=== PATIENT | female | born 1950 | race Caucasian/White ===

== ENCOUNTER 2021-11-23 16:40 | Inpatient (IN) | payer MEDICARE ==
[~2021-11-23] VITALS: Ht 162.6 cm; Wt 82.2 kg
[2021-11-23] MEDS ORDERED: magnesium hydroxide 30ml (MOM) UD suspension PO PRN (22:50)
[2021-11-23] MEDS ORDERED: mag hydrox/Alum hydrox/simeth 30ml oral suspension PO PRN (22:50)
[2021-11-23] MEDS ORDERED: acetaminophen 325mg tablet PO PRN (22:50)
[2021-11-23] MEDS ORDERED: NICOTINE POLACRILEX 2 MG LOZENGE BC PRN (22:50)
[2021-11-23] MEDS ORDERED: Melatonin 3mg tablet PO ONE ×2 (23:30→23:55)
[2021-11-23] MEDS ORDERED: traZODone 150mg tablet PO ONE (23:30)
[2021-11-24] MEDS: acetaminophen 325mg tablet PO PRN ×3 (00:04→19:39)
[2021-11-24 02:17] VITALS: BP 155/69
[2021-11-24] MEDS ORDERED: ATOM40CA PO (02:27)
[2021-11-24] MEDS ORDERED: ANAS1TAB10 PO (02:27)
[2021-11-24] MEDS ORDERED: B CO1CAP5 PO (02:28)
[2021-11-24] MEDS ORDERED: BIOT10TA PO (02:29)
[2021-11-24] MEDS ORDERED: CYCL5TAB PO (02:30)
[2021-11-24] MEDS ORDERED: GABA-530 PO (02:32)
[2021-11-24] MEDS ORDERED: HYDR12.55 PO (02:33)
[2021-11-24] MEDS ORDERED: HYDR-3965 PO (02:35)
[2021-11-24] MEDS ORDERED: EMPA10TA PO (02:36)
[2021-11-24] MEDS ORDERED: METF-436 PO (02:37)
[2021-11-24] MEDS ORDERED: OMEG1CAP61 PO (02:38)
[2021-11-24] MEDS ORDERED: PRAV20TA4 PO (02:39)
[2021-11-24] MEDS ORDERED: PROM25TA14 PO (02:45)
[2021-11-24] MEDS ORDERED: TRAZ-251 PO (02:46)
[2021-11-24] MEDS ORDERED: VENL-191 PO (02:47)
[2021-11-24] MEDS ORDERED: ASCO100T12 PO (02:48)
[2021-11-24] MEDS ORDERED: ALPR1TAB2 PO (02:51)
[2021-11-24] MEDS ORDERED: proMETHazine 25mg tablet PO PRN (03:20)
--- NOTE | 2021-11-24 04:43 | NUR ---
LAVATORY ATTENDANT NOTE: LEGAL HOLD: 5150 for DTS PSYCH HX: Complicated grief ( of 42 years 13 years ago, depression/anxiety, Childhood trauma, second suicide attempt (first at age 15 yo). MEDICAL HX: DM II, Psoriatic arthritis, HTN, hyperlipidemia, chronic back and knee pain, Breast CA (right side), lumpectomy w/ lymph node removal. PROBLEM: Client admitted to [facility] for Xanax overdose. Client took Xanax and was found down. Client stated, "I'm just tired. I don't want to get out of bed. I just want this to end." INTERVENTION: I. Admission assessments. I. Inventory personal belongings. I. Q 15 min checks for safety. I. 1:1 intervention to allow client to express thoughts and feelings. RESPONSE: Client arrived on unit at 22:10 accompanied by Vidya Norris. Client presents as depressed and anxious. Client stated, "I need to sell my house but I don't have the energy to get out of bed. I want to move to [place] to be with my niece and sister." Client is concerned about being admitted and unable to pay her bills. Client stated, "I lost my 13 years ago and can't get over it. We were for 42 years." In addition she was diagnosed with breast ca six months ago. Client is overwhelmed by her current circumstances. She denies that this was a true suicide attempt. Depressed and anxious.
--- NOTE | 2021-11-24 04:59 | NUR ---
NEED DOSAGE AND FREQUENCY FOR TRULICITY AND ENBREL.
[2021-11-24] MEDS: metFORMIN 500mg tablet PO SCH ×2 (07:30→17:59)
[2021-11-24 08:00] VITALS: BP 128/61
[2021-11-24] MEDS: venlafaxine 37.5mg tablet PO SCH (08:00)
[2021-11-24] MEDS: anastrozole 1 MG tablet PO SCH (08:00)
[2021-11-24] MEDS: OMEGA-3/DHA/EPA/FISH OIL 1 EACH CAPSULE.DR PO SCH (08:00)
[2021-11-24] MEDS: ascorbic acid 500mg tablet PO SCH (08:00)
[2021-11-24] MEDS: vitamin B comp w/Vit. C tab 1 TAB TABLET PO SCH (08:00)
[2021-11-24] MEDS: EMPAGLIFLOZIN 25 MG TABLET PO SCH (08:00)
[2021-11-24] MEDS: atomoxetine 40 MG capsule PO SCH (08:00)
[2021-11-24] MEDS: atorvastatin 10mg tablet PO SCH (08:00)
[2021-11-24] MEDS: HYDROchlorothiazide 12.5mg capsule PO SCH (08:00)
[2021-11-24] MEDS ORDERED: nicotine 21mg patch - 24 hr TD SCH (08:00)
[2021-11-24] MEDS ORDERED: non-formulary drug (Biotin 2 TAB) PO SCH (08:00)
[2021-11-24] MEDS: gabapentin 100mg capsule PO SCH ×3 (08:00→20:33)
[2021-11-24 08:06] LABS: HEMOGLOBIN A1C 8.1 % (4.5-6.2)
[2021-11-24] MEDS: loperamide 2mg capsule PO PRN (08:07)
[2021-11-24 08:28] LABS: CHOL/HDL RATIO 4.3 (0.00-4.99); CHOLESTEROL 195 MG/DL (0-200); HDL CHOLESTEROL 45 MG/DL (35-60); LDL CHOLESTEROL 121 MG/DL (50-100); TRIGLYCERIDES 183 MG/DL (20-135)
[2021-11-24] MEDS: HYDROcodone/acetaminophen 5mg/325mg tablet PO PRN (12:53)
--- NOTE | 2021-11-24 17:38 | NUR ---
Nursing Progress Notes: Problem: Client admitted to [facility] for Xanax overdose. Client took Xanax and was found down. Client stated, "I'm just tired. I don't want to get out of bed. I just want this to end." Intervention: Medication administration. Maintained a safe and supportive environment, provided clear and simple instructions, provided direction and encouragement regarding performance of ADLs, monitored behaviors and maintained clear boundaries, provided positive reinforcement, blood glucose checks, and maintained Q15 minute safety checks. Response: Patient was awake at COS. She had a rough night due to her roommate being loud and disruptive. Patient was afraid that it might be because of her presence. That was quickly dispelled by myself. During 1:1 patient states that she did not try to commit suicide, I just wanted to sleep. I had cut my Xanax in pieces, and just kept taking them because I was still awake, buy I took too many, and then it was too late. She also had a pretty significant fall during that time. Patients Niece reports that patient told her she wanted to . The patient is type II diabetic, but hadnt been taking Glucophage. It has been restarted now. AM blood glucose was 217, noon was 220, before dinner was 220 again. She is compliant with all medications, and denies all MH symptoms. Her of 42 years 13 years ago, and the patient still has not dealt with his in any meaningful way. Plan: Pt. requires interruption of current crisis, medication adjustments, and a safe and supportive environment
[2021-11-24 20:00] VITALS: BP 122/65
[2021-11-24] MEDS: traZODone 50mg tablet PO SCH (20:33)
[2021-11-24] MEDS: cyclobenzaprine 10mg tablet PO SCH (20:35)
[2021-11-24] MEDS: ALPRAZolam 0.5mg tablet PO SCH (20:35)
[2021-11-24] MEDS ORDERED: MELA10TA PO (20:50)
[2021-11-24] MEDS: Melatonin 3mg tablet PO SCH (21:08)
--- NOTE | 2021-11-25 00:41 | NUR ---
Nursing Progress Notes: Problem: Client admitted to [facility] for Xanax overdose. Client took Xanax and was found down. Client stated, "I'm just tired. I don't want to get out of bed. I just want this to end." Intervention: Medication administration. Maintained a safe and supportive environment, provided clear and simple instructions, provided direction and encouragement regarding performance of ADLs, monitored behaviors and maintained clear boundaries, provided positive reinforcement, blood glucose checks, and maintained Q15 minute safety checks. Response: Patient in community room putting together a puzzle with a fellow peer. Patient 1:1, Pt denies A/V/H SI HI. Patient downplays incident involving taking medications. Patient persists that she was tired and had kept taking her medications because she was tired and had trouble falling asleep. Patient socialized with other pts until bedtime. Patient blood sugar 221 @2100. Patient took all evening meds w/o complications. Pt went to bed shortly after emergency medical dispatcher. Plan: Pt. requires interruption of current crisis, medication adjustments, and a safe and supportive environment
--- NOTE | 2021-11-25 07:17 | NUR ---
Diabetes consult: Pt w/ hx of DM A1c 8.1 per EMR. Not appropriate for education at this time given reason for admission. Will defer. Addendum: 11/25/21 at [address] Amended: Links added.
[2021-11-25] MEDS: atomoxetine 40 MG capsule PO SCH (07:54)
[2021-11-25] MEDS: vitamin B comp w/Vit. C tab 1 TAB TABLET PO SCH (07:54)
[2021-11-25] MEDS: metFORMIN 500mg tablet PO SCH ×2 (07:54→17:50)
[2021-11-25] MEDS: gabapentin 100mg capsule PO SCH ×3 (07:54→20:31)
[2021-11-25] MEDS: HYDROchlorothiazide 12.5mg capsule PO SCH (07:54)
[2021-11-25] MEDS: ascorbic acid 500mg tablet PO SCH (07:54)
[2021-11-25] MEDS: venlafaxine 37.5mg tablet PO SCH (07:54)
[2021-11-25] MEDS: EMPAGLIFLOZIN 25 MG TABLET PO SCH (07:54)
[2021-11-25] MEDS: OMEGA-3/DHA/EPA/FISH OIL 1 EACH CAPSULE.DR PO SCH (07:54)
[2021-11-25] MEDS: anastrozole 1 MG tablet PO SCH (07:55)
[2021-11-25] MEDS: atorvastatin 10mg tablet PO SCH (07:55)
[2021-11-25 08:00] VITALS: BP 125/74
[2021-11-25] MEDS: acetaminophen 325mg tablet PO PRN (08:00)
[2021-11-25] MEDS: loperamide 2mg capsule PO PRN (09:38)
[2021-11-25] MEDS: HYDROcodone/acetaminophen 5mg/325mg tablet PO PRN (09:46)
--- NOTE | 2021-11-25 17:25 | NUR ---
Nursing Progress Notes: Problem: Client admitted to [facility] for Xanax overdose. Client took Xanax and was found down. Client stated, "I'm just tired. I don't want to get out of bed. I just want this to end." Intervention: Medication administration. Maintained a safe and supportive environment, provided clear and simple instructions, provided direction and encouragement regarding performance of ADLs, monitored behaviors and maintained clear boundaries, provided positive reinforcement, blood glucose checks, and maintained Q15 minute safety checks. Response: Received Pt awake in her room. Pt was pleasant and cooperative. Pt was cooperative with vitals and talkative during AM assessments. Pt believed she was leaving today and this RN stated this would be unlikely due to travel arrangements needing to be made on a Friday. Pt is ok with staying another day. Pts blood glucose was 227 before lunch and Juanjo CANDICE decided to increase her Metformin. Pt wishes to leave tomorrow and was uncomfortable with her roommates antics in the morning. Spent afternoon watching TV. Pt denies SI. Pt will be moving to [place] to live near [facility] and continue to deal with husbands and life stressors. Plan: Pt. requires interruption of current crisis, medication adjustments, and a safe and supportive environment
[2021-11-25 19:29] VITALS: BP 148/59
[2021-11-25] MEDS: traZODone 50mg tablet PO SCH (20:30)
[2021-11-25] MEDS: Melatonin 3mg tablet PO SCH (20:30)
[2021-11-25] MEDS: cyclobenzaprine 10mg tablet PO SCH (20:32)
[2021-11-25] MEDS: ALPRAZolam 0.5mg tablet PO SCH (20:36)
--- NOTE | 2021-11-26 00:34 | NUR ---
Nursing Progress Notes: Problem: Client admitted to [facility] for Xanax overdose. Client took Xanax and was found down. Client stated, "I'm just tired. I don't want to get out of bed. I just want this to end." Intervention: Medication administration. Maintained a safe and supportive environment, provided clear and simple instructions, provided direction and encouragement regarding performance of ADLs, monitored behaviors and maintained clear boundaries, provided positive reinforcement, blood glucose checks, and maintained Q15 minute safety checks. Response: Pt up in the group room at start of shift. Playing board games and being social with other pts. Pt was pleasant and cooperative. Pt is planing to leave tomorrow. Pt's Metformin dose was increased. Pts blood glucose was 163 at HS. . Pt denies SI. Pt will be moving to [place] to live near niece and continue to deal with husbands and life stressors. Plan: Pt. requires interruption of current crisis, medication adjustments, and a safe and supportive environment
[2021-11-26] MEDS: HYDROcodone/acetaminophen 5mg/325mg tablet PO PRN ×2 (06:29→15:02)
[2021-11-26 08:00] VITALS: BP 134/71
[2021-11-26] MEDS: OMEGA-3/DHA/EPA/FISH OIL 1 EACH CAPSULE.DR PO SCH (08:00)
[2021-11-26] MEDS: HYDROchlorothiazide 12.5mg capsule PO SCH (08:09)
[2021-11-26] MEDS: EMPAGLIFLOZIN 25 MG TABLET PO SCH (08:09)
[2021-11-26] MEDS: vitamin B comp w/Vit. C tab 1 TAB TABLET PO SCH (08:10)
[2021-11-26] MEDS: metFORMIN 500mg tablet PO SCH ×2 (08:10→17:34)
[2021-11-26] MEDS: ascorbic acid 500mg tablet PO SCH (08:10)
[2021-11-26] MEDS: atomoxetine 40 MG capsule PO SCH (08:10)
[2021-11-26] MEDS: atorvastatin 10mg tablet PO SCH (08:10)
[2021-11-26] MEDS: venlafaxine XR 75mg capsule (Q24H) PO SCH (08:10)
[2021-11-26] MEDS: gabapentin 100mg capsule PO SCH ×3 (08:10→20:20)
[2021-11-26] MEDS: anastrozole 1 MG tablet PO SCH (08:11)
[2021-11-26] MEDS ORDERED: anastrozole 1 MG tablet PO SCH (11:03)
--- NOTE | 2021-11-26 14:33 | NUR ---
DISCHARGE PLANNING Tika is discharging to her home in [place]. [facility] is unable to transport her today. They may be able to do so tomorrow. Tika gave narrative writer phone numbers to [facility] and stated she was told they will transport her home. Called the # ([phone]) and was informed they cannot transport Tika home and to utilize [facility]. ZEE Sin
[2021-11-26] MEDS: loperamide 2mg capsule PO PRN ×2 (15:41→21:34)
--- NOTE | 2021-11-26 16:43 | NUR ---
Nursing Progress Notes: Problem: Client admitted to [facility] for Xanax overdose. Client took Xanax and was found down. Client stated, "I'm just tired. I don't want to get out of bed. I just want this to end." Intervention: Provided 1:1 mental health assessment, medication administration/education/monitoring, provided PRN medications per request, monitored blood glucose, assisted with discharge planning, provided positive reinforcement, monitored Q15 minute safety checks. Response: Pt reports, "I am ready to leave here." She was told she was discharged then later she found out she did not have transportation to [place]. She became angry and tearful. Pt called a transition social worker in [place] to discuss transportation. Pt is compliant with her medications. She denies SI. Afternoon blood glucose was 167. Accu checks changed to daily. Pt Plan: Pt is ready for discharge she is waiting for transportation.
[2021-11-26 19:55] VITALS: BP 128/63
[2021-11-26] MEDS: cyclobenzaprine 10mg tablet PO SCH (20:12)
[2021-11-26] MEDS: ALPRAZolam 0.5mg tablet PO SCH (20:14)
[2021-11-26] MEDS: Melatonin 3mg tablet PO SCH (20:14)
[2021-11-26] MEDS: traZODone 50mg tablet PO SCH (20:15)
--- NOTE | 2021-11-27 01:50 | NUR ---
Nursing Progress Notes: Problem: Client admitted to [facility] for Xanax overdose. Client took Xanax and was found down. Client stated, "I'm just tired. I don't want to get out of bed. I just want this to end." Intervention: Medication administration. Maintained a safe and supportive environment, provided clear and simple instructions, provided direction and encouragement regarding performance of ADLs, monitored behaviors and maintained clear boundaries, provided positive reinforcement, blood glucose checks, and maintained Q15 minute safety checks. Response: Pt up in the group room at start of shift. Playing board games and being social with other pts. Pt angry about [place] counts include [facility] beds at the [facility] not picking her up today. Pt has frequent multiple requests and at times interrupts staff in conversations with other pts. She sometimes is intrusive into other pts care. But most of the time is pleasant and cooperative. Plan: Pt is ready for discharge she is waiting for transportation.
[2021-11-27] MEDS: metFORMIN 500mg tablet PO SCH (07:18)
[2021-11-27] MEDS: atomoxetine 40 MG capsule PO SCH (07:18)
[2021-11-27] MEDS: loperamide 2mg capsule PO PRN (07:18)
[2021-11-27] MEDS: vitamin B comp w/Vit. C tab 1 TAB TABLET PO SCH (07:18)
[2021-11-27] MEDS: HYDROchlorothiazide 12.5mg capsule PO SCH (07:18)
[2021-11-27] MEDS: EMPAGLIFLOZIN 25 MG TABLET PO SCH (07:20)
[2021-11-27] MEDS: ascorbic acid 500mg tablet PO SCH (07:20)
[2021-11-27] MEDS: HYDROcodone/acetaminophen 5mg/325mg tablet PO PRN (07:24)
[2021-11-27] MEDS: gabapentin 100mg capsule PO SCH (07:24)
[2021-11-27] MEDS: venlafaxine XR 75mg capsule (Q24H) PO SCH (07:25)
[2021-11-27 07:41] LABS: BASOPHILS # (AUTO) 0.1 X10'3 (0-0.2); BASOPHILS % (AUTO) 1.3 % (0-1); EOSINOPHILS # (AUTO) 0.2 X10'3 (0-0.9); EOSINOPHILS % (AUTO) 2.7 % (0-6); HEMATOCRIT 36.1 % (35.0-45.0); HEMOGLOBIN 11.4 g/dl (12.0-16.0); LYMPHOCYTES # (AUTO) 1.9 X10'3 (1.1-4.8); LYMPHOCYTES % (AUTO) 24.9 % (21-51); MEAN CORPUSCULAR HEMOGLOBIN 20.5 PG (27.0-31.0); MEAN CORPUSCULAR HGB CONC 31.5 g/dL (33.0-36.5); MEAN CORPUSCULAR VOLUME 65.1 FL (78-98); MEAN PLATELET VOLUME 8.4 FL (7.4-10.4); MONOCYTES # (AUTO) 0.6 X10'3 (0-0.9); MONOCYTES % (AUTO) 7.3 % (2-12); NEUTROPHILS % (AUTO) 63.8 % (42-75); PLATELET COUNT 409 X10'3 (140-440); RED BLOOD COUNT 5.55 X10'6 (4.20-5.60); RED CELL DISTRIBUTION WIDTH 16.4 % (11.5-14.5); WHITE BLOOD COUNT 7.8 X10'3 (4.5-11.0)
--- NOTE | 2021-11-27 07:47 | NUR ---
Initial: Pt admitted w/ major depression per EMR. Currently on Regular diet w/ mostly 100% intake of meals meeting est needs at this time. LBM 11/24, receiving PRN imodium. No nutrition intervention implemented at this time, will continue to monitor. Recs: 1. Continue Regular diet as tolerated 2. Bowel care PRN 3. Weekly wts Addendum: 11/27/21 at [address] Amended: Links added.
[2021-11-27 07:58] LABS: ALANINE AMINOTRANSFERASE 16 U/L (12-78); ALBUMIN 3.5 G/DL (3.4-5.0); ALBUMIN/GLOBULIN RATIO 1.1 (1.1-1.5); ALKALINE PHOSPHATASE 53 IU/L (46-116); ANION GAP 6 (8-16); ASPARTATE AMINO TRANSFERASE 14 U/L (10-37); BILIRUBIN,TOTAL 0.5 MG/DL (0.1-1.0); BLOOD UREA NITROGEN 15 MG/DL (7-18); BUN/CREATININE RATIO 17.4 (6.6-38.0); CALCIUM 8.6 MG/DL (8.5-10.1); CHLORIDE 99 MMOL/L (99-107); CREATININE 0.86 MG/DL (0.40-0.90); GLUCOSE 83 MG/DL (70-104); MAGNESIUM 2.1 MG/DL (1.5-2.4); PHOSPHORUS 4.3 MG/DL (2.3-4.5); SODIUM 134 MMOL/L (135-145); TOTAL CARBON DIOXIDE 28.7 MMOL/L (24-32); TOTAL PROTEIN 6.7 G/DL (6.4-8.2); eGFR 65 ML/MIN
[2021-11-27 08:00] VITALS: BP 144/72
[2021-11-27] MEDS ORDERED: atorvastatin 20mg tablet PO SCH (08:00)
[2021-11-27] MEDS: OMEGA-3/DHA/EPA/FISH OIL 1 EACH CAPSULE.DR PO SCH (08:00)
[2021-11-27 08:24] LABS: ANISOCYTOSIS 1+; ELLIPTOCYTES 1+; MICROCYTOSIS 2+; PLATELET ESTIMATE NORMAL
[2021-11-27 08:25] LABS: HYPOCHROMASIA 1+; SCHISTOCYTES FEW; TEAR DROP CELLS FEW
--- NOTE | 2021-11-27 10:16 | NUR ---
DISCHARGE [facility] is picking up Tika 10-10:30 AM this morning to transport her home to [place]. She has follow up scheduled with her PCP. ZEE Sin
[2021-11-27] MEDS ORDERED: HYDR-3965 PO (10:18)
--- NOTE | 2021-11-27 10:35 | NUR ---
Discharge Note: Pt. signed all paperwork and copies were provided. All personal property accounted for and given to before leaving, and a bottle of medication was picked up from pharmacy and sent with pt. as well. Reviewed all paperwork and f/u appt. with Dr. Mendenhall on 12/13/2021. Pt. ambulated off the unit to her route driver salesperson in waiting at 1030.
== END 2021-11-27 10:30 | disposition home or self-care (01) | DRG 882 ==
LOC: ADULT MH 16:40
PROVIDERS: ADMIT Psychiatry & Neurology Psychiatry; ATTEND Psychiatry & Neurology Psychiatry
DX: F43.25 Adjustment disorder with mixed disturbance of emotions and conduct (principal); T42.4X1A Poisoning by benzodiazepines, accidental (unintentional), initial encounter; L40.50 Arthropathic psoriasis, unspecified; F11.20 Opioid dependence, uncomplicated; N39.0 Urinary tract infection, site not specified; C50.919 Malignant neoplasm of unspecified site of unspecified female breast; E11.40 Type 2 diabetes mellitus with diabetic neuropathy, unspecified; E78.5 Hyperlipidemia, unspecified; F32.9 Major depressive disorder, single episode, unspecified; F41.9 Anxiety disorder, unspecified; I10 Essential (primary) hypertension; G89.29 Other chronic pain; M79.7 Fibromyalgia; R53.82 Chronic fatigue, unspecified; Z79.84 Long term (current) use of oral hypoglycemic drugs; Z79.899 Other long term (current) drug therapy; Z83.3 Family history of diabetes mellitus; Z90.710 Acquired absence of both cervix and uterus; Z91.51 Personal history of suicidal behavior; Z98.42 Cataract extraction status, left eye; Z98.41 Cataract extraction status, right eye; Y92.098 Other place in other non-institutional residence as the place of occurrence of the external cause
CPT/HCPCS: 36415; 80053; 80061; 82948; 83036; 83735; 84100; 85008; 85025; 87081